=== PATIENT | female | born 1970 | race Caucasian/White ===

== ENCOUNTER → 2017-03-25 | Outpatient (CLI) | payer OTHER ==
--- NOTE | 2017-03-25 12:18 | DI ---
LEFT KNEE., 03/25/2017 10:32 AM: Clinical History: Acute left knee pain. Previous Exam: None at this facility. AP and lateral views are submitted. The AP projection is a standing view no significant joint effusio n is noted. There is a faint lucency in the lateral half of the patella and the patient may have a bi partite patella. There is narrowing of the medial compartment consistent with moderate degenerative c hange. 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
== END ==
LOC: MOB RAD 10:38
PROVIDERS: ATTEND Family Medicine
DX: M25.562 Pain in left knee (principal); M17.12 Unilateral primary osteoarthritis, left knee; F17.200 Nicotine dependence, unspecified, uncomplicated
CPT/HCPCS: 73560

== ENCOUNTER → 2017-04-17 | Outpatient (CLI) | payer OTHER ==
--- NOTE | 2017-04-17 13:24 | DI ---
MRI THORACIC SPINE W/O CN,04/17/2017 11:02 AM: Clinical History: Acute left-sided thoracic back pain. Previous Exam: None at this facility. Findings: Multiple helically acquired CT images are obtained through the thoracic spine without contrast. Bony alignment is anatomic. No fractures are seen. Marrow signal is preserved. The spinal cord descen ds normally with normal course, caliber and signal characteristics. There is no significant degenerat marlys disc disease. There is no central canal nor neuroforaminal narrowing. The paraspinal musculature is unremarkable. Visualized intrathoracic structures are also unremarkable . Impression: Normal MRI thoracic spine.
== END ==
LOC: MRI 10:54
PROVIDERS: ATTEND Family Medicine
DX: M54.6 Pain in thoracic spine (principal)
CPT/HCPCS: 72146